=== PATIENT | female | born 2000 | race Caucasian/White ===

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

== ENCOUNTER 2021-06-18 18:44 | Outpatient (CLI) | payer OTHER, SELFPAY ==
[2021-06-18 19:21] LABS: Alanine Aminotransferase 8 U/L (0-33); Albumin Level 4.5 g/dL (3.5-5.2); Alkaline Phosphatase 58 IU/L (35-105); Anion Gap 15.8 (5-19); Aspartate Amino Transferase 13 U/L (0-32); Blood Urea Nitrogen 9 mg/dL (6-20); Calcium 8.6 mg/dL (8.5-10.5); Carbon Dioxide 24 mmol/L (22-29); Chloride 102 mmol/L (98-107); Globulin 2.5 g/dL (1.3-4.6); Glomerular Filtration Rate 107.8 mL/min (90-130); Glucose 89 mg/dL (65-115); Osmolality Calculated 284 mOsm/kg (285-295); Potassium 3.8 mmol/L (3.5-5.1); Sodium 138 mmol/L (136-145); Total Bilirubin 0.8 mg/dL (0.15-1.2)
== END 2021-06-18 18:45 | disposition home or self-care (01) ==
PROVIDERS: Visit Provider Nurse Practitioner
DX: R60.9 Edema, unspecified (principal)
CPT/HCPCS: 80053

== ENCOUNTER → 2021-06-30 16:00 | Outpatient (BNVA) | payer OTHER, SELFPAY | PROVIDERS: Visit Provider Registered Nurse Neonatal Intensive Care | DX: N39.0 Urinary tract infection, site not specified (principal) | CPT/HCPCS: 81000; 87077; 87086; 87184 ==

== ENCOUNTER 2021-12-01 19:00 | Emergency (ER) | payer BC, OTHER, SELFPAY ==
--- NOTE | 2021-12-01 19:09 | CTR_ITS ---
PROCEDURE INFORMATION: Exam: CT Abdomen And Pelvis Without Contrast Exam date and time: 12/01/2021 9:48 PM Age: 21 years old Clinical indication: Abdominal pain; Acute; Prior surgery; Surgery date: 6+ months; Surgery type: Kidney; Additional info: Flank pain TECHNIQUE: Imaging protocol: Computed tomography of the abdomen and pelvis without contrast. Radiation optimization: All CT scans at this facility use at least one of these dose optimization techniques: automated exposure control; mA and/or kV adjustment per patient size (includes targeted exams where dose is matched to clinical indication); or iterative reconstruction. COMPARISON: US abdomen complete* [id number] 01/09/2020 1:59 AM RADIATION DOSE METRICS: Total DLP (mGy-cm): 876.91 FINDINGS: Liver: Normal. No mass. Gallbladder and bile ducts: Normal. No calcified stones. No ductal dilation. Pancreas: Normal. No ductal dilation. Spleen: Normal. No splenomegaly. Adrenal glands: Normal. No mass. Kidneys and ureters: Left nephrectomy. No renal stones. No hydronephrosis. Stomach and bowel: Unremarkable. No obstruction. No mucosal thickening. Appendix: No evidence of appendicitis. Intraperitoneal space: Trace pelvic free fluid, likely physiologic. No free air. No significant fluid collection. Vasculature: Unremarkable. No abdominal aortic aneurysm. Lymph nodes: Unremarkable. No enlarged lymph nodes. Urinary bladder: A few bladder stones are noted measuring up to 5 mm in size. Reproductive: Unremarkable as visualized. Bones/joints: No acute fracture. Soft tissues: Unremarkable. CT/CT kidney stone [id number] IMPRESSION: No acute findings. A few bladder stones are noted measuring up to 5 mm in size.
[2021-12-01 19:11] VITALS: BP 112/59; PULSE 109; RESP 18; TEMP 38.2; O2SAT 97
[2021-12-01 20:46] VITALS: BP 127/79; PULSE 94; RESP 16; O2SAT 100
--- NOTE | 2021-12-01 20:47 | W.ED.GENADLT ---
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 She states that she is concerned today because she is having right-sided flank pain along with fevers. She is seen in urgent care was sent here for further work-up. States she is also had some body aches along with sore throat she is given Tylenol and feels improved currently. She denies any severe pain in her abdomen or flank states the pain is roughly 1-2 out of 10. Denies any vaginal discharge or dysuria. Associated symptoms: Deny chest pain, dyspnea, headache(s), nausea, rash or vomiting Review of Systems Const: Reports: fever(s), chills and body aches Eyes: Denies: blurry vision or eye discomfort ENMT: Reports: throat pain Card: Denies: chest pain Resp: Denies: dyspnea GI: Denies: abdominal pain, nausea, vomiting or diarrhea : Reports: flank pain Musc: Denies: neck pain or back pain Skin/Breast: Denies: rash Neuro: Denies: headache(s) Psych: Denies: depression Fei/Lymph: Denies: easy bruising All/Imm: Denies: urticaria [facility] ED PFSH: Medical History (Updated 12/01/21 @ 23:16 by Gordo Farrell MD) H/O unilateral nephrectomy No pertinent past medical history Social History Smoking and tobacco status: never smoked Female Reproductive History: Date of last menstrual period: 12/28/19 Physical Exam Const: COMMON NORMALS: no acute distress, patient oriented x3 and healthy appearing HENMT: COMMON NORMALS: normocephalic and atraumatic HEAD & SCALP: normocephalic and atraumatic Eye: COMMON NORMALS: Equal, round and reactive pupils present and EOMs intact bilaterally PUPIL: Yes Equal, round and reactive pupils present Neck/C-Spine: COMMON NORMALS: full ROM and supple Chest: COMMONS NORMALS: normal inspection of the chest and normal palpation of entire chest wall Resp: COMMON NORMALS: normal respiratory effort, No retractions, No use of accessory muscles and clear to auscultation bilaterally AUSCULTATION: clear to auscultation bilaterally Cardio: COMMON NORMALS: regular rate, regular rhythm and No murmurs present (Cardio) RATE: regular rate RHYTHM: regular rhythm GI: COMMON NORMALS: Normal to inspection, nondistended, normoactive bowel sounds present, Soft to palpation, non-tender and no masses PALPATION: Yes Soft to palpation Extremity: COMMON NORMALS: normal to inspection and full ROM Neuro: COMMON NORMALS: patient oriented x3, moves all extremities and no focal motor deficits Psych: COMMON NORMALS: mental status grossly normal, Normal thought process present and cooperative THOUGHT PROCESS: Normal thought process present Skin: COMMON NORMALS: no rashes or lesions noted and no wounds GENERAL SKIN EXAM: no rashes or lesions noted Course Vital Signs: Vital signs: Vital Signs Temperature 100.7 F H 12/01/21 19:11 Pulse Rate 88 12/01/21 22:00 Respiratory Rate 16 12/01/21 22:00 Blood Pressure 131/68 12/01/21 22:00 Pulse Oximetry 97 12/01/21 22:[address] [facility] - General Adult Medical Decision Making Patient presents here with a fever blood work here is normal she did have some white cells in her urine but no signs of severe infection we will start her on Keflex with elevated white count she has no signs of septic shock she feels improved she is to follow-up with PCP and return if worsening. Lab Data : 12/01/21 20:46 12/01/21 20:46 Radiology Impressions Abdomen/Pelvis CT 12/01/21 19:09 IMPRESSION: No acute findings. A few bladder stones are noted measuring up to 5 mm in size. Chest X-Ray 12/01/21 21:05 IMPRESSION: No acute findings. Laboratory Results WBC 20.2 10^3/uL (4.5-13.0) H 12/01/21 20:46 RBC 4.62 10^6/uL (4.1-5.3) 12/01/21 20:46 Hgb 14.6 g/dL (11.5-15.3) 12/01/21 20:46 Hct 41.9 % (37.0-47.0) 12/01/21 20:46 MCV 90.7 fl (81-99) 12/01/21 20:46 MCH 31.6 pg (28.0-34.0) 12/01/21 20:46 MCHC 34.8 g/dL (30.0-36.0) 12/01/21 20:46 RDW 11.5 % (12.1-15.1) L 12/01/21 20:46 Plt Count 247 10^3/cmm (130-400) 12/01/21 20:46 MPV 10.8 fL (7.4-10.4) H 12/01/21 20:46 Neut % (Auto) 89.5 % 12/01/21 20:46 Lymph % (Auto) 3.6 % 12/01/21 20:46 [place] % (Auto) 6.2 % 12/01/21 20:46 Eos % (Auto) 0.0 % 12/01/21 20:46 Baso % (Auto) 0.2 % 12/01/21 20:46 Neut # (Auto) 18.08 10^3/uL (1.8-8.0) H 12/01/21 20:46 Lymph # (Auto) 0.7 10^3/uL (1.5-6.5) L 12/01/21 20:46 [place] # (Auto) 1.3 10^3/uL (0.2-0.9) H 12/01/21 20:46 Eos # (Auto) 0.0 10^3/uL (0.0-0.8) 12/01/21 20:46 Baso # (Auto) 0.1 10^3/uL (0.0-0.1) 12/01/21 20:46 Nucleated RBC % (auto) 0 % 12/01/21 20:46 Nucleated RBCs # 0.0 /100WBC 12/01/21 20:46 Sodium 137 mmol/L (136-145) 12/01/21 20:46 Potassium 3.6 mmol/L (3.5-5.1) 12/01/21 20:46 Chloride 99 mmol/L (98-107) 12/01/21 20:46 Carbon Dioxide 23 mmol/L (22-29) 12/01/21 20:46 Anion Gap 18.6 (5-19) 12/01/21 20:46 BUN 10 mg/dL (6-20) 12/01/21 20:46 Creatinine 0.7 mg/dL (0.5-0.9) 12/01/21 20:46 GFR Calculation 106.7 mL/min (90-130) 12/01/21 20:46 Glucose 125 mg/dL (65-115) H 12/01/21 20:46 Calculated Osmolality 285 mOsm/kg (285-295) 12/01/21 20:46 Lactic Acid 1.3 mmol/L (0.5-2.2) 12/01/21 21:18 Calcium 9.6 mg/dL (8.5-10.5) 12/01/21 20:46 Total Bilirubin 1.4 mg/dL (0.15-1.2) H 12/01/21 20:46 AST 15 U/L (0-32) 12/01/21 20:46 ALT 9 U/L (0-33) 12/01/21 20:46 Alkaline Phosphatase 70 IU/L (35-105) 12/01/21 20:46 Total Protein 7.7 g/dL (6.6-8.7) 12/01/21 20:46 Albumin 4.9 g/dL (3.5-5.2) 12/01/21 20:46 Globulin 2.8 g/dL (1.3-4.6) 12/01/21 20:46 Lipase 26 U/L (13-60) 12/01/21 20:46 HCG, Qual Negative (Negative) 12/01/21 20:46 Urine Color Red (Yellow) 12/01/21 20:36 Urine Appearance Cloudy (CLEAR) 12/01/21 20:36 Urine pH 7 (5-7) 12/01/21 20:36 Ur Specific Alpha 1.005 (1.005-1.030) 12/01/21 20:36 Urine Protein 1+ (Negative) H 12/01/21 20:36 Urine Glucose (UA) Norm (Normal) 12/01/21 20:36 Urine Ketones Negative (Negative) 12/01/21 20:36 Urine Blood 3+ (Negative) H 12/01/21 20:36 Urine Nitrate Negative (Negative) 12/01/21 20:36 Urine Bilirubin 1+ (Negative) H 12/01/21 20:36 Urine Urobilinogen 1 mg/dL (Negative) H 12/01/21 20:36 Ur Leukocyte Esterase 1+ (Negative) H 12/01/21 20:36 Urine RBC Too numerous to cnt /hpf (0-2) H 12/01/21 20:36 Urine WBC 5-10 /hpf (0-5) H 12/01/21 20:36 Ur Squamous Epith Cells 0-4 /hpf (0-5) H 12/01/21 20:36 Amorphous Sediment Not Reportable 12/01/21 20:36 Urine Bacteria Trace /hpf (NONE) 12/01/21 20:36 SARS-CoV-2 Ag (Rapid) Negative (Negative) 12/01/21 20:40 Discharge Plan Discharge Patient Disposition: Home Clinical Impression: Fever Qualifiers: Fever type: unspecified Qualified Code(s): R50.9 - Fever, unspecified Condition: Stable Prescriptions: New cephalexin 500 mg capsule 500 mg PO TID 7 Days Qty: 21 0RF Discharge Orders: Discharge ED (Routine); Ordered 12/01/21 Ordered By: Gordo Farrell Discharge Diet: Advance as tolerated Discharge Activity: Resume usual activity Patient Instructions: Fever in Adults (ED) Coding Level of Care Code ED Jewel Diameter Gauger for Junieg Fwd Exam Comprehensive
[2021-12-01 20:55] LABS: Basophils # 0.1 10^3/uL (0.0-0.1); Basophils % 0.2 %; Hematocrit 41.9 % (37.0-47.0); Hemoglobin 14.6 g/dL (11.5-15.3); Lymphocytes # 0.7 10^3/uL (1.5-6.5); Lymphocytes % 3.6 %; Mean Corpuscular HGB Conc 34.8 g/dL (30.0-36.0); Mean Corpuscular Hemoglobin 31.6 pg (28.0-34.0); Mean Corpuscular Volume 90.7 fl (81-99); Mean Platelet Volume 10.8 fL (7.4-10.4); Monocytes # 1.3 10^3/uL (0.2-0.9); Monocytes % 6.2 %; Neutrophils # 18.08 10^3/uL (1.8-8.0); Neutrophils % 89.5 %; Nucleated Red Blood Cells % 0 %; Platelet Count 247 10^3/cmm (130-400); Red Blood Count 4.62 10^6/uL (4.1-5.3); Red Cell Distribution Width 11.5 % (12.1-15.1); White Blood Count 20.2 10^3/uL (4.5-13.0)
[2021-12-01 20:57] LABS: Add Urine Culture? Yes; Add Urine Microscopic? YES; Bacteria Urine TRACE /hpf; Bilirubin Urine 1+ (Negative); Blood Urine 3+ (Negative); Glucose Urine UA Norm (Normal); Ketones Urine Negative (Negative); Leukocyte Esterase Urine 1+ (Negative); Nitrate Urine Negative (Negative); Protein Urine 1+ (Negative); RBC Urine TOO NUMEROUS TO CNT /hpf (0-2); Specific Gravity, Urine 1.005 (1.005-1.030); Squamous Epithelial Cell Urine 0-4 /hpf (0-5); Urine Appearance Cloudy (CLEAR); Urine Color Red (Yellow); Urobilinogen Urine 1 mg/dL (Negative); pH Urine 7 (5-7)
[2021-12-01 21:01] LABS: SARS Covid-2 Antigen Negative (Negative)
--- NOTE | 2021-12-01 21:05 | XRR_ITS ---
PROCEDURE INFORMATION: Exam: XR Chest Exam date and time: 12/01/2021 9:44 PM Age: 21 years old Clinical indication: Fever; Prior surgery; Surgery date: 6+ months; Surgery type: Kidney surgery TECHNIQUE: Imaging protocol: Radiologic exam of the chest. Views: 1 view. COMPARISON: No relevant prior studies available. FINDINGS: Lungs: Unremarkable. No consolidation. Pleural spaces: Unremarkable. No pleural effusion. No pneumothorax. Heart/Mediastinum: Unremarkable. No cardiomegaly. Bones/joints: Unremarkable. XR/XR chest 1V portable [id number] IMPRESSION: No acute findings.
[2021-12-01 21:06] LABS: HCG, Serum Qual Negative (Negative)
[2021-12-01] MEDS: acetaminophen 500 mg Tablet 1000 MG PO (21:11)
[2021-12-01] MEDS: sodium chloride 0.9% 1,000 ML 999 ML IV (21:11)
[2021-12-01 21:21] LABS: Alanine Aminotransferase 9 U/L (0-33); Albumin Level 4.9 g/dL (3.5-5.2); Alkaline Phosphatase 70 IU/L (35-105); Aspartate Amino Transferase 15 U/L (0-32); Blood Urea Nitrogen 10 mg/dL (6-20); Calcium 9.6 mg/dL (8.5-10.5); Carbon Dioxide 23 mmol/L (22-29); Chloride 99 mmol/L (98-107); Globulin 2.8 g/dL (1.3-4.6); Glomerular Filtration Rate 106.7 mL/min (90-130); Glucose 125 mg/dL (65-115); Lipase 26 U/L (13-60); Osmolality Calculated 285 mOsm/kg (285-295); Sodium 137 mmol/L (136-145); Total Bilirubin 1.4 mg/dL (0.15-1.2); Total Protein 7.7 g/dL (6.6-8.7)
[2021-12-01 21:23] LABS: Anion Gap 18.6 (5-19); Potassium 3.6 mmol/L (3.5-5.1)
[2021-12-01 21:47] LABS: Lactic Sepsis W/Reflex 1.3 mmol/L (0.5-2.2)
[2021-12-01 22:00] VITALS: BP 131/68; PULSE 88; RESP 16; O2SAT 97
[2021-12-01] MEDS: cefTRIAXone 1,000 MG in lidocaine 1% 2.1 ML 2.1 MG IM (23:28)
== END 2021-12-01 23:45 | disposition home or self-care (01) ==
PROVIDERS: Emergency Provider Emergency Medicine
DX: R50.9 Fever, unspecified (principal); Z20.822 Contact with and (suspected) exposure to COVID-19
CPT/HCPCS: 71045; 74176; 80053; 81000; 81001; 83605; 83690; 84703; 85025; 87086; 87426; 87880; 96360; 96372; 99284; J0696; J7030

== ENCOUNTER 2022-05-05 19:05 | Emergency (ER) | payer BC, OTHER, SELFPAY ==
[2022-05-05 20:06] VITALS: BP 118/74; PULSE 107; RESP 16; TEMP 36.3; O2SAT 97; BMI 21.9
--- NOTE | 2022-05-05 20:54 | XRR_ITS ---
PROCEDURE INFORMATION: Exam: XR Chest Exam date and time: 05/05/2022 9:02 PM Age: 21 years old Clinical indication: Cough; Additional info: SOB TECHNIQUE: Imaging protocol: Radiologic exam of the chest. Views: 1 view. COMPARISON: CR XR chest 1V portable [id number] 12/01/2021 9:44 PM FINDINGS: Lungs: Possible left basilar bronchopneumonia. Lateral chest may be helpful for confirmation. Mildly hyperaerated lungs consistent with deep inspiratory effort vs reactive airway disease vs mild COPD . Pleural spaces: Unremarkable. No pleural effusion. No pneumothorax. Heart/Mediastinum: Unremarkable. No cardiomegaly. Bones/joints: Minimal dextroscoliosis. XR/XR chest 1V portable [id number] IMPRESSION: 1. Possible left basilar bronchopneumonia. Lateral chest may be helpful for confirmation. 2. Mildly hyperaerated lungs consistent with deep inspiratory effort vs reactive airway disease vs mild COPD .
--- NOTE | 2022-05-05 21:38 | ECG_ITS ---
[facility] Test Date: 2022-05-05 Pat Name: Gloria Chen Department: Room: Gender: Female Performance Reporter: : 2000 Requested By: Gordo Farrell Order Number: [id number] Kenny MD: Milagros Acevedo M.D. Measurements Intervals [place] Rate: 95 P: 72 MO: 134 QRS: 48 QRSD: 73 T: -72 QT: 313 QTc: 394 Interpretive Statements SINUS RHYTHM LEFT ATRIAL ENLARGEMENT [-0.15mV P-WAVE IN V1/V2] POSSIBLE RIGHT VENTRICULAR CONDUCTION DELAY [RSR (QR) IN V1/V2] SEPTAL MYOCARDIAL INFARCTION , PROBABLY OLD [40+ ms Q WAVE IN V1/V2] MODERATE T-WAVE ABNORMALITY, CONSIDER LATERAL ISCHEMIA MODERATE T-WAVE ABNORMALITY, CONSIDER INFERIOR ISCHEMIA No previous ECG available for comparison Electronically Signed On 05-07-2022 7:51:28 [employer]PERVISOR ELEMENTARY EDUCATION by Milagros Acevedo M.D. [id number]
== END 2022-05-05 22:12 | disposition left against medical advice (07) ==
PROVIDERS: Emergency Provider Family Medicine; PCP Physician Assistant
DX: Z53.21 Procedure and treatment not carried out due to patient leaving prior to being seen by health care provider (principal)
CPT/HCPCS: 71045; 93005; 99284